=== PATIENT | female | born 1990 | race Caucasian/White ===

== ENCOUNTER 2024-08-05 11:52 | Outpatient (CLI) | payer OTHER, SELFPAY ==
[2024-08-05 12:04] VITALS: BP 122/65; PULSE 86
[2024-08-05 12:13] LABS: Nitrazine Paper, PH Negative
[2024-08-05 12:17] VITALS: BP 122/68; PULSE 85
[2024-08-05 12:29] LABS: Actim Prom Negative
[2024-08-05 12:31] VITALS: BP 113/63; PULSE 91
== END 2024-08-05 12:40 | disposition home or self-care (01) ==
LOC: OPOB 11:52 → OBGYN 11:53
PROVIDERS: PCP Family Medicine; Visit Provider Family Medicine
DX: O26.899 Other specified pregnancy related conditions, unspecified trimester (principal); Z3A.00 Weeks of gestation of pregnancy not specified; N89.8 Other specified noninflammatory disorders of vagina
CPT/HCPCS: 59025; 83986; 84112; 99211

== ENCOUNTER 2024-08-09 04:55 | Inpatient (IN) | payer OTHER, SELFPAY ==
[2024-08-09] VITALS (35 sets, daily range): BP systolic 98–146; BP diastolic 48–83; PULSE 63–102; RESP 15–18; TEMP 36.6–36.8; O2SAT 99–100; BMI 28.2
--- OUTSIDE RECORDS SUMMARY | 2024-08-09 04:59 | XMS_ITS | Patient Health Record ---
Author Organization [facility] Address [address] [place] [address] Care Team Providers Care Coordinator [employer] Name Role Phone Palmira Levine Unavailable [phone] Allergies No Known Allergies Reason For Referral No Information Medications Medication SIG (Take, Route, Frequency, Duration) Notes Start Date End Date Status Levonorgestrel-Ethinyl Estrad 0.15-30 MG-MCG 1 tablet Orally Once a day for 28 day(s) 08/16/2021 Active Levonorgestrel-Ethinyl Estrad 0.15-30 MG-MCG 1 tablet Orally Once a day for 28 day(s) Active Levonorgestrel-Ethinyl Estrad 0.15-30 MG-MCG 1 tablet Orally Once a day for 28 day(s) Active Social History Tobacco Use: Social History Observation Description Date Details (start date - stop date) Current Smoker NA - NA xTobacco Use/Smoking Question Answer Notes Are you a current smoker How often do you smoke cigarettes? every day Alcohol Screen (Audit-C) Question Answer Notes Did you have a drink contain ing alcohol in the past year? Yes How often did you have a dri nk containing alcohol in the past year? 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
[2024-08-09 05:28] LABS: Basophils % 0.2 %; Eosinophils # 0.1 10^3/uL (0.0-0.8); Eosinophils % 0.7 %; Lymphocytes # 1.4 10^3/uL (0.8-4.8); Lymphocytes % 15.9 %; Mean Corpuscular HGB Conc 32.8 g/dL (30-55); Mean Corpuscular Hemoglobin 28.9 pg (27-33); Mean Platelet Volume 11.6 fL (7.4-10.4); Monocytes # 0.6 10^3/uL (0.2-0.9); Monocytes % 6.5 %; Neutrophils # 6.27 10^3/uL (1.8-7.7); Neutrophils % 74.1 %; Nucleated Red Blood Cells % 0 %; Platelet Count 111 10^3/cmm (157-399); Red Blood Count 4.09 10^6/uL (3.85-5.65); Red Cell Distribution Width 13.6 % (12.1-15.1); White Blood Count 8.47 10^3/uL (3.29-11.43)
[2024-08-09] MEDS: sodium chloride 0.9% 1,000 ML 999 ML IV (06:00)
--- NOTE | 2024-08-09 06:42 | P.HP_ITS ---
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 The patient has had an unremarkable . The patient did have some herpes lesions last week. As a result we elected to proceed with a section. At length, we discussed the risks and alternatives. She and her had no further questions and wished to proceed. Present Details : 1 Para: 0 Labs Rubella: Non-Immune RPR: Negative GBS: Positive HBsAG: Negative Other Lab Information: The remainder of her infectious disease profile was within normal limits. Her 3-hour glucose screen was negative. 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 OFFICER 2 PFSH: Medical History No significant past medical history Surgical History No pertinent past surgical history Family History Other Diabetes Denies family history of CAD (coronary artery disease) Clotting disorder Dementia Hyperlipidemia Psychiatric illness Chronic kidney disease (CKD) Suicide Anesthesia complication Bleeding disorder Family history of premature coronary artery disease Lung disease Cancer Hypertension Stroke Social History Smoking and tobacco/nicotine status: never used tobacco/nicotine Alcohol intake: current Alcohol intake frequency: few times a month Alcohol type: wine Substance/Drug Use: never Adopted: No Lives independently: Yes Household members: significant other Vitals/I&O/Wt Last Vital Signs Temp 97.8 F 08/09/24 05:15 Pulse 94 08/09/24 06:30 Resp 16 08/09/24 05:10 BP 118/77 08/09/24 06:30 O2 Del Method Room Air 08/09/24 05:31 Weight last 48 hrs Weight 175 lb Weight 175 lb Physical Exam 2 Const: COMMON NORMALS: patient oriented x3 and alert HENMT: COMMON NORMALS: moist oral mucous membranes HEAD & SCALP: normal to inspection Chest: COMMONS NORMALS: normal inspection of the chest Resp: COMMON NORMALS: clear to auscultation bilaterally AUSCULTATION: clear to auscultation bilaterally Cardio: COMMON NORMALS: regular rate and regular rhythm RATE: regular rate RHYTHM: regular rhythm GI: INSPECTION: Yes normal to inspection and Yes other (Gravid) Extremity: COMMON NORMALS: normal to inspection GENERAL: Yes edema (Trace) Neuro: COMMON NORMALS: patient oriented x3, moves all extremities and no sensory deficits noted SENSORIUM/ORIENTATION: Yes alert Psych: COMMON NORMALS: mental status grossly normal Skin: COMMON NORMALS: no rashes or lesions noted GENERAL SKIN EXAM: no rashes or lesions noted Data 08/09/24 05:12 Results Labs OB ([facility]): 2 Blood Type O Positive 08/09/24 Antibody Screen Negative 08/09/24 Hct 36.0 % (36-47) 08/09/24 Hgb 11.80 g/dL (11.27-16.99) 08/09/24 Rho(D) Type Rh positive 08/09/24 Plt Count 111 10^3/cmm (157-399) L 08/09/24 A&P Assessment and plan (1) 39 weeks gestation of : We will proceed with a section. (2) HSV-2 infection complicating : PDMP PDMP Reviewed: Not Reviewed Attestations 2 Medical Necessity Statement*: I anticipate routine and post care Coding Level of Care Code Acute Code for Chg Fwd Diagnoses 39 weeks gestation of Z3A.39 HSV-2 infection complicating O98.519; B00.9
[2024-08-09] MEDS: citric acid-sodium citrate 30 mL UDC PO (06:47)
[2024-08-09] MEDS: famotidine 20 mg/2 mL INJ IVP (06:47)
[2024-08-09] MEDS: metoclopramide 5 mg/mL SDV 2 mL 10 MG IVP (06:47)
[2024-08-09] MEDS: ceFAZolin 2,000 mg SDV 2000 MG IVP (06:48)
[2024-08-09] MEDS: BUPivacaine 0.5% INJ 30 mL INJECTION (07:07)
--- NOTE | 2024-08-09 08:06 | PM.OP ---
Operative Report Date of procedure: August 09, 2024 Pre-op diagnosis: 1. 33-year-old 1 female at 39 weeks estimated gestational age 2.. Vaginal HSV lesions in past week. Post-op diagnosis: Status post low-transverse section Procedure done: Low-transverse section Specimens removed/disposition: 1. Male with a weight of 6 pounds 15 ounces and Apgars of 8 and 9 2. Placenta with a three-vessel cord delivered intact Surgeon: Jose Villalobos MD Estimated blood loss (mL): 500 Complications: None Procedure: The patient was brought back to the operating room where she was prepped and draped in usual sterile fashion. Anesthesia was found to be adequate. A lower transverse skin incision was then made with a #10 blade. I then dissected down to the underlying subcutaneous tissue until arriving at the prerectal fascia. The fascia was then nicked with the scalpel bilaterally. The fascial incisions were then carried laterally with Capone scissors. Attention was then turned to the superior aspect of the incision which was grasped with kochers and tented up away from the underlying rectus abdominis muscles. The muscles were then dissected away from the fascia manually, and later with Capone scissors. Attention was then turned to the inferior aspect of the incision, and the fascia was dissected away from the underlying muscle in similar fashion. The rectus abdominis muscles were then spread manually. The peritoneum was entered manually. Excellent visualization of the uterus was noted. A lower transverse uterine incision was then made with a #10 blade. Upon arriving at the intrauterine cavity, the uterine incision was then extended manually. The infant was noted to be in vertex position. The baby was delivered without difficulty. There was no meconium. The mouth and nose were suctioned shortly after delivery. There was no nuchal cord. The cord was cut and clamped. The baby was then handed to the waiting nurse. The placenta was removed intact. The uterus was externalized. The intrauterine cavity was cleansed of any remaining debris. The uterine incision was reapproximated in 2 layers. The first layer was performed with 0 Vicryl in a running locked stitch. The second layer was an imbricating stitch also using 0 Vicryl. The uterus was replaced into the abdomen. The peritoneum was then irrigated with warm saline. I reexamined the uterine incision and found it to be hemostatic. The rectus abdominis muscles were then reapproximated using 0 Vicryl in a running stitch. The fascia was then reapproximated using 0 Vicryl in running stitch. The subcutaneous tissue was then reapproximated using 0 Vicryl in a running stitch as well. The skin was reapproximated using liv. A sterile dressing was placed. All counts were correct x2. Both the mother and baby were in stable condition.
[2024-08-09] MEDS: dextrose 5%-lactated ringers 1,000 ML 125 ML IV (09:01)
[2024-08-09] MEDS: ketorolac 30 mg/mL INJ IVP ×2 (14:22→22:49)
[2024-08-09] MEDS: acetaminophen 325 mg Tablet 650 MG PO (16:05)
[2024-08-09 17:32] LABS: Mean Corpuscular HGB Conc 31.8 g/dL (30-55); Mean Corpuscular Hemoglobin 28.7 pg (27-33); Mean Corpuscular Volume 90.4 fl (85-98); Mean Platelet Volume 11.9 fL (7.4-10.4); Platelet Count 117 10^3/cmm (157-399); Red Blood Count 3.76 10^6/uL (3.85-5.65); Red Cell Distribution Width 13.6 % (12.1-15.1); White Blood Count 12.81 10^3/uL (3.29-11.43)
[2024-08-10 04:00] VITALS: BP 110/71; PULSE 99; RESP 18; TEMP 36.5
--- NOTE | 2024-08-10 09:53 | P.DS_ITS ---
Discharge Providers [employer] FOREM[employer]/SUPERINTENDANT Date of Admission: 08/09/24 04:55 Date of Discharge: 08/10/24 Attending Provider at Admission: Jose Villalobos MD Attending Provider at Discharge: Jose Villalobos MD Primary Care Provider: Jose Villalobos MD Diagnoses at Discharge Discharge Diagnosis (1) 39 weeks gestation of : Status: Acute (2) HSV-2 infection complicating : Status: Acute Reason for Visit Reason for Visit: female presenting for Hospital Course Hospital Course The patient presented to the hospital for a scheduled section due to HSV lesions. Her was unremarkable. Her pain is been well-controlled. Her bleeding has been within normal limits. She is breast-feeding reasonably well. She has had some concerns, and we will have her see a special ist to improve her confidence in her breast-feeding. Information Peripartum Data: Infant Delivery Method: Physical Exam Narrative: She is in no acute distress Lungs are clear auscultation bilaterally Her heart has a regular rate and rhythm Her fundus is below the umbilicus and firm Her dressing is clean, dry and intact Her extremities have trace edema Urinary Catheter Management: Chavira Latex Free: Cath Placed During This Visit: yes, but has since been removed by the nurse Reason for Continuing Indwelling Catheter: Decision to DC Catheter Urinary Catheter Date of Insertion: 08/09/24 Urinary Catheter Time of Insertion: 07:12 Date Urinary Catheter Removed: 08/09/24 Time Urinary Catheter Discontinued: 21:00 Discharge Data Studies Completed and Pending Laboratory Results WBC 12.81 10^3/uL (3.29-11.43) H 08/09/24 17:15 RBC 3.76 10^6/uL (3.85-5.65) L 08/09/24 17:15 Hgb 10.80 g/dL (11.27-16.99) L 08/09/24 17:15 Hct 34.0 % (36-47) L 08/09/24 17:15 MCV 90.4 fl (85-98) 08/09/24 17:15 MCH 28.7 pg (27-33) 08/09/24 17:15 MCHC 31.8 g/dL (30-55) 08/09/24 17:15 RDW 13.6 % (12.1-15.1) 08/09/24 17:15 Plt Count 117 10^3/cmm (157-399) L 08/09/24 17:15 MPV 11.9 fL (7.4-10.4) H 08/09/24 17:15 Neut % (Auto) 74.1 % 08/09/24 05:12 Lymph % (Auto) 15.9 % 08/09/24 05:12 [place] % (Auto) 6.5 % 08/09/24 05:12 Eos % (Auto) 0.7 % 08/09/24 05:12 Baso % (Auto) 0.2 % 08/09/24 05:12 Neut # (Auto) 6.27 10^3/uL (1.8-7.7) 08/09/24 05:12 Lymph # (Auto) 1.4 10^3/uL (0.8-4.8) 08/09/24 05:12 [place] # (Auto) 0.6 10^3/uL (0.2-0.9) 08/09/24 05:12 Eos # (Auto) 0.1 10^3/uL (0.0-0.8) 08/09/24 05:12 Baso # (Auto) 0.0 10^3/uL (0.0-0.1) 08/09/24 05:12 Nucleated RBC % (auto) 0 % 08/09/24 05:12 Nucleated RBCs # 0.0 /100WBC 08/09/24 05:12 Blood Type O Positive 08/09/24 05:12 Rho(D) Type Rh positive 08/09/24 05:12 Antibody Screen Negative 08/09/24 05:12 Vitals Last Vital Signs Temp 97.7 F 08/10/24 04:00 Pulse 99 08/10/24 04:00 Resp 18 08/10/24 04:00 BP 110/71 08/10/24 04:00 Pulse Ox 99 08/09/24 16:00 O2 Del Method Room Air 08/09/24 16:00 Results Labs OB ([facility]): Blood Type O Positive 08/09/24 Antibody Screen Negative 08/09/24 Hct 34.0 % (36-47) L 08/09/24 Hgb 10.80 g/dL (11.27-16.99) L 08/09/24 Rho(D) Type Rh positive 08/09/24 Plt Count 117 10^3/cmm (157-399) L 08/09/24 Discharge Plan Discharge Patient Disposition: Home Condition: Stable Prescriptions: New docusate sodium 100 mg Capsule 100 mg PO BID PRN (Reason: constipation) Qty: 14 0RF ibuprofen 800 mg Tablet 800 mg PO TID Qty: 45 0RF hydrocodone-acetaminophen 5-325 mg Tablet 1 tab PO Q6H PRN (Reason: Moderate To Severe Pain) Qty: 28 0RF Continued jktuvtmq-jzj-Hh-FA 1 mg Tablet 1 tab PO 1XD Discharge Orders: Discharge Order (Routine); Ordered 08/10/24 Ordered By: Jose Villalobos Discharge Diet: Usual diet Discharge Activity: Limit activity as instructed Patient Instructions: Opioid Safety Discharge Attestations [employer]/SUPERINTEND[employer] Time Spent in Discharge Care*: less than 30 min Coding Level of Care Code Acute Code for Chg Fwd Diagnoses 39 weeks gestation of Z3A.39 HSV-2 infection complicating O98.519; B00.9
[2024-08-10] MEDS: ibuprofen 800 mg tablet PO ×2 (10:52→17:45)
[2024-08-10] MEDS: ferrous sulfate EC 325 mg Tablet PO ×2 (10:52→17:46)
[2024-08-10] MEDS: PRENATAL VIT NO.130/IRON/FOLIC 1 EACH TABLET PO (10:52)
[2024-08-10] MEDS: docusate sodium 100 mg Capsule PO ×2 (10:52→17:46)
[2024-08-10 11:15] VITALS: BP 103/48; PULSE 87; RESP 17; TEMP 36.6; TEMP 36.7; O2SAT 99
[2024-08-10] MEDS: measles,mumps,rubella pf Vial (w/diluent) 0.5 ML SUBCUT (17:46)
[2024-08-10 18:27] VITALS: BP 115/76; PULSE 76; RESP 17; TEMP 37.1; O2SAT 100
== END 2024-08-10 18:33 | disposition home or self-care (01) | DRG 788 ==
PROVIDERS: Admitting Provider Family Medicine; PCP Family Medicine; Visit Provider Family Medicine
PROC: 10D00Z1 Extraction of Products of Conception, Low, Open Approach (ICD-10-PCS; CPT 59514; principal; 2024-08-09 07:00)
DX: O98.52 Other viral diseases complicating childbirth (principal); B00.9 Herpesviral infection, unspecified; Z3A.39 39 weeks gestation of pregnancy; Z37.0 Single live birth
CPT/HCPCS: 36415; 51702; 59409; 85025; 85027; 86850; 86900; 90707; 96372; 96374; J0690; J1885; J2274; J2405; J2765; J3010; J3490; J7030; J7121; J9999